=== PATIENT | male | born 1980 | race African-American/Black ===

== ENCOUNTER 2018-02-06 14:27 | Emergency (ER) | payer OTHER ==
[2018-02-06 14:52] VITALS: BP 149/83; PULSE 73; RESP 16; TEMP 98
--- NOTE | 2018-02-06 15:05 | ED ---
General Adult HPI - General Chief complaint: Extremity Injury, Upper Stated complaint: shoulder pain Time Seen by Provider: 02/06/18 14:57 Source: patient, RN notes reviewed Mode of arrival: ambulatory Limitations: no limitations - History of Present Illness Initial comments: This is a 37-year-old male who presents to the emergency department chief complaint of right shoulder pain. Patient states that he woke up Tuesday morning and had achiness in his right shoulder. He states that he woke up Tuesday morning and had difficulty moving his right shoulder due to pain. He states that he had to call into work today because of the pain in his right shoulder. He denies any specific injuries or trauma. He does state that he feels like he may have slept on it wrong Tuesday night. He requests a work note. Denies recent fevers or chills, chest pain or shortness of breath, abdominal pain, nausea or vomiting, dizziness or headache. - Related Data Home Medications Medication Instructions Recorded Confirmed No Known Home Medications [No 02/06/18 02/06/18 Known Home Medications] Allergies Allergy/AdvReac Type Severity Reaction Status Date / Time No Known Allergies Allergy Verified 02/06/18 14:50 Review of Systems ROS Statement: Those systems with pertinent positive or pertinent negative responses have been documented in the HPI. ROS Other: All systems not noted in ROS Statement are negative. Past Medical History Past Medical History: No Reported History History of Any Multi-Drug Resistant Organisms: None Reported Past Surgical History: Hernia Repair Past Psychological History: No Psychological Hx Reported Smoking Status: Current every day smoker Past Alcohol Use History: Occasional Past Drug Use History: None Reported General Exam - General Exam Comments Initial Comments: General: Awake and alert, well-developed; in no apparent distress. HEENT: Head atraumatic, normocephalic. Pupils are equal, round and reactive to light. Extraocular movements intact. Oropharynx moist without erythema or exudate. Neck: Supple. Normal ROM. Cardiovascular: Regular rate and rhythm. No murmurs, rubs or gallops. Chest symmetrical. Respiratory: Lungs clear to auscultation bilaterally. No wheezes, rales or rhonchi. Normal respiratory effort with no use of accessory muscles. Musculoskeletal: Normal range of motion of the right shoulder, however patient complains of pain with flexion and abduction due to pain. There is no tenderness on palpation of clavicle, AC joint or scapula. No erythema, swelling or ecchymosis. Sensation is intact. Radial pulses are 2+ equal and palpable bilaterally. Skin: Damon, warm and dry without rashes or lesions. Neurological: Alert and oriented x3. CN II-XII grossly intact. Speech is fluent and answers are appropriate. No focal neuro deficits. Psychiatric: Normal mood and affect. No overt signs of depression or anxiety noted. Limitations: no limitations Course Vital Signs 02/06/18 14:48 Temperature 98 F Pulse Rate 73 Respiratory 16 Rate Blood Pressure 149/83 O2 Sat by Pulse 99 Oximetry Medical Decision Making - Medical Decision Making This is a 37-year-old male who presents to the emergency department with chief complaint of right shoulder pain. Patient denies any specific injury or trauma. He states that he woke up Tuesday morning with achiness in his right shoulder and has difficulty moving it due to the pain. X-ray was obtained and revealed no acute fractures or dislocations. Patient will be provided with a sling. He will also be given follow-up information for orthopedics if pain persists. Recommended rest, ice and ibuprofen as needed. Patient's vital signs are stable and he is in no acute distress. He will be discharged home at this time. All questions answered. - Radiology Data Radiology results: report reviewed, image reviewed Right shoulder x-ray impression: There is no acute fracture or dislocation the right shoulder. 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 Disposition Clinical Impression: Right shoulder pain Disposition: HOME SELF-CARE Condition: Good Instructions: Shoulder Pain (ED) Additional Instructions: Please follow-up with Dr. Subramanian, orthopedics if pain persists. Please rest, ice and take ibuprofen as needed for pain. Please follow up with primary care provider within 1-2 days. Return to emergency department if symptoms should worsen or any concerns arise. Is patient prescribed a controlled substance at d/c from ED?: No Referrals: None,Stated [Primary Care Provider] - 1-2 days Tank Subramanian MD [STAFF PHYSICIAN] - 1-2 days Time of Disposition: 15:33
--- NOTE | 2018-02-06 15:14 | XR ---
EXAMINATION TYPE: XR shoulder complete RT DATE OF EXAM: 02/06/2018 CLINICAL HISTORY: Right shoulder pain for 2 to 3 days with no known injury TECHNIQUE: Three views of the right shoulder are obtained. COMPARISON: None. FINDINGS: There is no acute fracture/dislocation evident in the right shoulder. The acromioclavicul ar and glenohumeral joint spaces appear intact. There is mild to moderate acromioclavicular arthropat hy with marginal spurring, capsular hypertrophy and joint space narrowing. The visualized ribs are i ntact and unremarkable. IMPRESSION: There is no acute fracture or dislocation in the right shoulder. Mild to moderate acromi oclavicular arthropathy.
== END 2018-02-06 15:52 | disposition home or self-care (01) ==
LOC: EC 14:27
DX: M25.511 Pain in right shoulder (principal); F17.200 Nicotine dependence, unspecified, uncomplicated
CPT/HCPCS: 99283

== ENCOUNTER 2018-10-21 10:17 | Emergency (ER) | payer OTHER ==
[2018-10-21 10:26] VITALS: RESP 18
--- NOTE | 2018-10-21 11:08 | ED ---
General Adult HPI - General Chief complaint: ENT Stated complaint: needs ears flushed Time Seen by Provider: 10/21/18 10:31 Source: patient, RN notes reviewed Mode of arrival: ambulatory Limitations: no limitations - History of Present Illness Initial comments: Patient is a pleasant 38-year-old male presenting to the emergency department with concern regarding cerumen impaction. Patient states he has had this happen several times in the past and usually needs his ears flushed out every couple of years. Patient states he is able to hear however does seem somewhat less. No fevers. No throat or neck problems. No pain. - Related Data Home Medications Medication Instructions Recorded Confirmed No Known Home Medications 02/06/18 10/21/18 Allergies Allergy/AdvReac Type Severity Reaction Status Date / Time No Known Allergies Allergy Verified 10/21/18 10:31 Review of Systems ROS Statement: Those systems with pertinent positive or pertinent negative responses have been documented in the HPI. ROS Other: All systems not noted in ROS Statement are negative. Constitutional: Denies: fever Eyes: Denies: eye pain ENT: Reports: as per HPI. Denies: ear pain, throat pain Respiratory: Denies: dyspnea Cardiovascular: Denies: palpitations Endocrine: Denies: fatigue Gastrointestinal: Denies: abdominal pain, vomiting Musculoskeletal: Denies: back pain Skin: Denies: rash Neurological: Denies: headache, weakness Past Medical History Past Medical History: No Reported History History of Any Multi-Drug Resistant Organisms: None Reported Past Surgical History: Hernia Repair Past Psychological History: No Psychological Hx Reported Smoking Status: Never smoker Past Alcohol Use History: Occasional Past Drug Use History: Marijuana General Exam Limitations: no limitations General appearance: alert, in no apparent distress Head exam: Present: atraumatic Eye exam: Present: normal appearance ENT exam: Present: other (Bilateral cerumen impaction) Neck exam: Present: normal inspection. Absent: tenderness, lymphadenopathy Respiratory exam: Present: normal lung sounds bilaterally Cardiovascular Exam: Present: regular rate, normal rhythm Neurological exam: Present: alert Psychiatric exam: Present: normal affect, normal mood Skin exam: Absent: rash Course Vital Signs 10/21/18 10:22 Temperature 98.0 F Pulse Rate 79 Respiratory 18 Rate Blood Pressure 128/83 O2 Sat by Pulse 96 Oximetry Medical Decision Making - Medical Decision Making Patient symptom-free following irrigation Disposition Clinical Impression: Cerumen impaction Disposition: HOME SELF-CARE Condition: Stable Instructions (If sedation given, give patient instructions): Cerumen Impaction (ED) Additional Instructions: Please follow-up with primary care physician in the next couple days for recheck. [id number] Debrox as needed. Return for pain, hearing loss, worsening symptoms or other concerns Is patient prescribed a controlled substance at d/c from ED?: No Referrals: Gin Irene MD [STAFF PHYSICIAN] - 1-2 days Time of Disposition: 12:08
[2018-10-21 12:16] VITALS: BP 122/68; PULSE 77; TEMP 97.9
== END 2018-10-21 12:16 | disposition home or self-care (01) ==
LOC: EC 10:17
DX: H61.23 Impacted cerumen, bilateral (principal)
CPT/HCPCS: 69209; 99283

== ENCOUNTER 2020-05-08 08:33 | Day surgery (SDC) | payer OTHER ==
[2020-05-06 09:22] VITALS: BMI 39.5
[~2020-05-08 08:33] MED LIST: LACTATED RINGERS 1,000 ML IV SCH
[2020-05-08 09:14] VITALS: RESP 16; TEMP 97.3
[2020-05-08] MEDS ORDERED: MIDAZOLAM 2 MG/2 ML VIAL ONE (09:47)
[2020-05-08] MEDS ORDERED: PROPOFOL 10 MG/ML 20 ML VIAL IV ONE (09:47)
[2020-05-08] MEDS ORDERED: fentaNYL (PF) 50 MCG/ML 2 ML AMP ONE (09:47)
--- NOTE | 2020-05-08 10:32 | P.PCN ---
Date of Procedure: 05/08/20 Description of Procedure: BRIEF HISTORY: Patient is a 39-year-old male presenting to the hospital for evaluation with colonoscopy for symptoms of rectal hemorrhage. The patient had been seen in the GI clinic where he complains of episodes of bright red blood per rectum. Symptoms have been present for 2 years. No family history of colon cancer. Patient was instructed to increase water intake and start fiber supplementation. PROCEDURE PERFORMED: Colonoscopy with biopsy. PREOPERATIVE DIAGNOSIS: Hemorrhage of the anus and rectum, no prior colonoscopy. ESTIMATED BLOOD LOSS: Minimal. IV sedation per Anesthesia. PROCEDURE: After informed consent was obtained, the patient, was brought into the endoscopy unit. IV sedation was administered by Anesthesia under continuous monitoring. Digital rectal examination was normal. Initially the Olympus CF-190 flexible video colonoscope was then inserted in the rectum, gradually advanced into the cecum without any difficulty. Careful examination was performed as the scope was gradually being withdrawn. Ileocecal valve and the appendiceal orifice were visualized and appeared normal, except for a 3 mm polypoid area on the ileocecal valve which was removed/biopsied with cold forcep. The terminal ileum was intubated and appeared normal. Prep was excellent. Mucosa of the cecum, ascending colon, transverse colon, descending colon, sigmoid colon, and rectum appeared normal. Diminutive 1 mm cecal polyp removed with cold forcep polypec roberto. Random biopsies taken of the right and left colon in the setting of rectal bleeding. Low-grade internal hemorrhoids were noted. Retroflexion was performed in the rectum and no lesions were seen. The patient tolerated the procedure well. IMPRESSION: Diminutive cecal polyp removed with cold forcep polypectomy. Low-grade internal hemorrhoids. Otherwise, normal-appearing colon from rectum to cecum with normal-appearing terminal ileum. Random biopsies taken of the right colon, left colon and ileocecal valve. RECOMMENDATIONS: Findings of this examination were discussed with the patient and his . Okay to resume diet. Okay to resume medications. Await pathology from polypectomy and biopsies. Continue fiber supplementation. Follow-up in clinic for results of biopsies and further management.
[2020-05-08 10:46] VITALS: BP 110/70; PULSE 74
== END 2020-05-08 11:41 ==
LOC: ORWHC2ENDO 08:33
PROVIDERS: ATTEND Internal Medicine
DX: D12.0 Benign neoplasm of cecum (principal); K64.8 Other hemorrhoids
CPT/HCPCS: 88305; 45380; J2250; J3010; J2704

== ENCOUNTER 2020-12-08 19:51 | Emergency (ER) | payer OTHER ==
[2020-12-08 21:28] VITALS: BP 135/86; PULSE 86; RESP 16; TEMP 97.9
[2020-12-08] MEDS ORDERED: CARBAMIDE PEROXIDE 6.5% DROPS 15 ML BTL BOTH EARS STA (22:40)
--- NOTE | 2020-12-08 22:41 | ED ---
ENT HPI - General Chief complaint: ENT Stated complaint: ENT - plugged ear Time Seen by Provider: 12/08/20 22:40 Source: patient, RN notes reviewed, old records reviewed Mode of arrival: ambulatory Limitations: no limitations - History of Present Illness Initial comments: This is a 32-year-old male DF for evaluation of bilateral ear plugged a she [id number] male presents to the ER today with serumen issues. Patient denies any loss of hearing. No trauma. No fevers. Patient states he uses ears cleaned about once ER MD complaint: ear pain -: year(s) Location: R ear, L ear Severity: mild Severity scale (1-10): 2 Quality: aching Consistency: constant Improves with: none Worsens with: swallowing, position Context- Dental: other (none) Context- Ear: other (none) Associated Symptoms: other (none) - Related Data Home Medications Medication Instructions Recorded Confirmed No Known Home Medications 02/06/18 05/06/20 Allergies Allergy/AdvReac Type Severity Reaction Status Date / Time No Known Allergies Allergy Verified 12/08/20 21:26 Review of Systems ROS Statement: Those systems with pertinent positive or pertinent negative responses have been documented in the HPI. ROS Other: All systems not noted in ROS Statement are negative. Past Medical History Past Medical History: GI Bleed History of Any Multi-Drug Resistant Organisms: None Reported Past Surgical History: Hernia Repair Past Anesthesia/Blood Transfusion Reactions: No Reported Reaction Past Psychological History: No Psychological Hx Reported Smoking Status: Former smoker Past Alcohol Use History: None Reported Past Drug Use History: Marijuana General Exam Limitations: no limitations General appearance: alert, in no apparent distress Head exam: Present: atraumatic, normocephalic, normal inspection Eye exam: Present: normal appearance, PERRL, EOMI. Absent: scleral icterus, conjunctival injection, periorbital swelling ENT exam: Present: normal exam, mucous membranes moist, TM's normal bilaterally (Bilateral cerumen impaction) Neck exam: Present: normal inspection. Absent: tenderness, meningismus, lymphadenopathy Respiratory exam: Present: normal lung sounds bilaterally. Absent: respiratory distress, wheezes, rales, rhonchi, stridor Cardiovascular Exam: Present: regular rate, normal rhythm, normal heart sounds. Absent: systolic murmur, diastolic murmur, rubs, gallop, clicks GI/Abdominal exam: Present: soft, normal bowel sounds. Absent: distended, tenderness, guarding, rebound, rigid Extremities exam: Present: normal inspection, full ROM, normal capillary refill. Absent: tenderness, pedal edema, joint swelling, calf tenderness Back exam: Present: normal inspection Neurological exam: Present: alert, oriented X3, CN II-XII intact Psychiatric exam: Present: normal affect, normal mood Skin exam: Present: warm, dry, intact, normal color. Absent: rash Course Vital Signs 12/08/20 21:26 Temperature 97.9 F Pulse Rate 86 Respiratory 16 Rate Blood Pressure 135/86 O2 Sat by Pulse 99 Oximetry - Reevaluation(s) Reevaluation #1: 12/09/20 00:09 Medical record is reviewed Reevaluation #2: 12/09/20 00:09 A she encouraged to use tea Brox 4 times daily Reevaluation #3: 12/09/20 00:10 Patient's ears were irrigated here in the ER Medical Decision Making - Medical Decision Making 89 male DF for evaluation. Patient does have bilateral cerumen impaction with his much improved if not resolved. Patient given ear care instructions and can be discharged home Disposition Clinical Impression: Impacted cerumen, Bilateral impacted cerumen Disposition: HOME SELF-CARE Condition: Good Instructions (If sedation given, give patient instructions): Cerumen Impaction (ED) Is patient prescribed a controlled substance at d/c from ED?: No Referrals: None,Stated [REFERRING] - 1-2 days
== END 2020-12-09 00:36 | disposition home or self-care (01) ==
LOC: EC 19:51
DX: H61.23 Impacted cerumen, bilateral (principal); Z87.891 Personal history of nicotine dependence
CPT/HCPCS: 99283

== ENCOUNTER → 2021-04-03 | Outpatient (CLI) | payer OTHER ==
--- NOTE | 2021-04-06 11:13 | MM ---
Reason for exam: clinical finding. Baseline mammogram. History: Family history of breast cancer in mother. Indicated problem(s): lump or thickening in the left breast. Physical Findings: Nurse Summary: 2-3cm nodule in the left breast at 12 o'clock (nurse db). MG 3D Diag Mammo W/Cad KALYANI Bilateral CC and MLO view(s) were taken. Asymmetric breast tissue left breast may reflect gynecomastia. These results were verbally communicated with the patient and result sheet given to the patient on 04/03/21. ASSESSMENT: Incomplete: need additional imaging evaluation, BI-RAD 0 RECOMMENDATION: Ultrasound of the left breast. Manage patient on a clinical basis.
--- NOTE | 2021-04-06 11:14 | USB ---
Reason for exam: additional evaluation requested from abnormal screening. History: Family history of breast cancer in mother. US Breast Limited LT Left limited breast ultrasound including focal area of concern, retroareolar and axilla demonstrates a 3.0 x 2.1 x 1.4cm solid, hypoechoic lesion at the nipple. Probable gynecomastia. These results were verbally communicated with the patient and result sheet given to the patient on 04/03/21. ASSESSMENT: Benign, BI-RAD 2 RECOMMENDATION: Clinical management of the left breast. Manage patient on a clinical basis.
== END | disposition home or self-care (01) ==
LOC: RADMAMWWP 14:25
PROVIDERS: ATTEND Nurse Practitioner Family
DX: R92.8 Other abnormal and inconclusive findings on diagnostic imaging of breast (principal); N63.20 Unspecified lump in the left breast, unspecified quadrant
CPT/HCPCS: 77066; 76642; G0279; 77062

== ENCOUNTER → 2021-06-11 | Outpatient (CLI) | payer OTHER ==
[2021-06-11 13:17] VITALS: BP 117/71; PULSE 77; RESP 12; TEMP 98.3
--- NOTE | 2021-06-11 13:47 | P.GSHP ---
History of Present Illness H&P Date: 06/11/21 Chief Complaint: mass left breast Bienvenido is a 40 year old male with a complaint of a mass behind his left nipple. It is increasing in size. it has been present for over a year. It is painful all the time but worse with pressure. He has nothing on the right side. He had a bilateral mammogram done on this revealed asymmetric left breast tissue probable gynecomastia, this was followed by a left breast ultrasound which revealed a 3 x 2.1 x 1.4 cm solid lesion at the nipple again probable gynecomastia. Caffiene; tea daily nicotine: none at this time, stopped 2018, used to smoke 2/PPD hormones: none medications: none Smokes marijuana on a regular basis; increased over the past year Family History: mother: breast cancer dx. in her 40's she did not have genetic testing done, it has recurred twice, it is back now Surgical history: umbilical hernia surgery right arm trauma Medical history: none Social History: nicotine: Stopped in 2018 used to smoke 2 packs per day Alcohol: None Marijuana: In a regular basis/daily no other drugs - Constitutional Constitutional: Reports sweats - EENT Eyes: denies blurred vision, denies pain Ears: bilateral: tinnitus, deny: decreased hearing Ears, nose, mouth and throat: Denies headache, Denies sore throat - Breasts Breasts: bilateral: as per HPI - Cardiovascular Cardiovascular: Denies chest pain, Denies shortness of breath - Respiratory Respiratory: Denies cough, Denies 7 - Gastrointestinal Gastrointestinal: Denies abdominal pain, Denies diarrhea, Denies nausea, Denies vomiting - Genitourinary (Male) Comment: no testicular masses Genitourinary: Denies dysuria, Denies hematuria - Musculoskeletal Musculoskeletal: Denies myalgias - Integumentary Integumentary: Denies pruritus, Denies rash - Neurological Neurological: Denies numbness, Denies weakness - Psychiatric Psychiatric: Denies anxiety, Denies depression - Endocrine Endocrine: Reports weight change, Denies fatigue - Hematologic/Lymphatic Comment: none - Allergic/Immunologic Allergic/Immunologic: Reports as per HPI Past Medical History Past Medical History: GI Bleed History of Any Multi-Drug Resistant Organisms: None Reported Past Surgical History: Hernia Repair Past Anesthesia/Blood Transfusion Reactions: No Reported Reaction Past Psychological History: No Psychological Hx Reported Smoking Status: Former smoker Past Alcohol Use History: None Reported Additional Past Alcohol Use History / Comment(s): smoker for since age 18, 2 ppd quit 2018 Past Drug Use History: Marijuana Medications and Allergies Home Medications Medication Instructions Recorded Confirmed Type No Known Home Medications 02/06/18 05/06/20 History Allergies Allergy/AdvReac Type Severity Reaction Status Date / Time No Known Allergies Allergy Verified 12/08/20 21:26 Surgical - Exam Vital Signs Temp Pulse Resp BP Pulse Ox 98.3 F 77 12 117/71 96 06/11/21 13:04 06/11/21 13:04 06/11/21 13:04 06/11/21 13:04 06/11/21 13:04 BMI 38.7 - General no distress - Eyes normal ocular movement - ENT no hearing loss, no congestion - Neck trachea midline - Respiratory normal respiratory effort, clear to auscultation - Cardiovascular Heart Sounds: normal: S1, S2 - Musculoskeletal normal gait - Psychiatric oriented to time, oriented to person, oriented to place, speech is normal, memory intact Breast Exam: Left breast larger than right breast Palpation: Right breast no dominant masses or nodules of concern him multiple positional exam Right axilla: No adenopathy of concern Left breast: Firmness to rule out the breast, no discrete dominant masses Left axilla: No adenopathy of concern Testicular exam: Bilateral testicles normal dominant masses or nodules of concern in either testicle Results Mammogram and ultrasound reviewed with Dr. Stephens, findings most likely consistent with gynecomastia Assessment and Plan Assessment: Impression: 1. left breast mass/pain 2. Smokes marijuana on a regular basis 2. Family history mother with breast cancer Plan: 1. Symptomatic left breast mass most likely gynecomastia 2. Ultrasound core biopsy left breast 3. We have discussed the smoking marijuana may be the cause of this patient at this time is not interested in stopping CC; Dr. Katalina Das
== END ==
LOC: WWCWWP 13:01
PROVIDERS: ATTEND Surgery
DX: Z53.9 Procedure and treatment not carried out, unspecified reason (principal)

== ENCOUNTER → 2021-07-01 | Day surgery (SDC) | payer OTHER ==
[2021-07-01 12:37] VITALS: RESP 16
--- NOTE | 2021-07-01 14:01 | USB ---
EXAMINATION TYPE: US biopsy breast VAD LT DATE OF EXAM: 07/01/2021 CLINICAL HISTORY: R92.8, Abnormal mammogram. Abnormal ultrasound TECHNIQUE: Ultrasound guided vaccuum assisted core biopsy of left breast. COMPARISON: 04/03/2021 FINDINGS: The ultrasound guided core biopsy procedure was explained to the patient. The risks, benef its, alternatives were discussed. An informed consent was then obtained. Timeout was performed. The patient was placed in supine positioning for imaging and for the procedure. The overlying skin w as prepped with betadine and sterilely draped in usual sterile fashion. Lidocaine 1% was used as ane sthetic into the skin and deeper breast tissue up to area of concern in the breast. A small skin jarad k was made with surgical scalpel. Under ultrasound guidance, a 12-gauge vacuum assisted biopsy device was used to obtain 4 core samples . A biopsy clip was not left in lesion. The area is directly retroareolar. Good hemostasis was obtained with direct pressure. Discharge instructions were discussed with the zane prater. The patient will follow up with the referring physician for results. Postprocedure mammogram: None The patient tolerated the procedure well without any immediate complication. The patient was dischar ged to home in stable condition. IMPRESSION: 1. Successful ultrasound guided biopsy left breast. Recommendations: 1. Recommendations are pending pathology results.
[2021-07-01 14:11] VITALS: BP 103/68; PULSE 76; TEMP 98.6
== END ==
LOC: RADUSWWP 12:09
PROVIDERS: ATTEND Surgery
DX: N60.12 Diffuse cystic mastopathy of left breast (principal)
CPT/HCPCS: 88305; 19083; J2001

== ENCOUNTER → 2021-07-10 | Outpatient (CLI) | payer OTHER ==
[2021-07-10 13:26] VITALS: BP 130/76; PULSE 96; RESP 18; TEMP 98.2
--- NOTE | 2021-07-10 13:57 | P.PN ---
Subjective Progress Note Date: 07/10/21 Principal diagnosis: Gynecomastia left breast Bienvenido is a 40 year old male with a complaint of a mass behind his left nipple. It is increasing in size. it has been present for over a year. It is painful all the time but worse with pressure. He has nothing on the right side. He had a bilateral mammogram done on this revealed asymmetric left breast tissue probable gynecomastia, this was followed by a left breast ultrasound which revealed a 3 x 2.1 x 1.4 cm solid lesion at the nipple again probable gynecomastia. A core biopsy was performed on [id number]. This revealed fibrosis/scar and fibrocystic changes. This was negative for malignancy. This was discussed with the pathologist Dr. Huggins who said that the findings were consistent with gynecomastia. Objective - Vital Signs Vital signs: Vital Signs Temp 98.2 F 07/10/21 13:23 Pulse 96 07/10/21 13:23 Resp 18 07/10/21 13:23 BP 130/76 07/10/21 13:23 Pulse Ox 98 07/10/21 13:23 Intake & Output 07/09/21 07/10/21 07/10/21 18:59 06:59 18:59 Weight 120.202 kg - Constitutional General appearance: Present: cooperative - EENT Eyes: Present: EOMI ENT: Present: hearing grossly normal - Neck Neck: Present: normal ROM - Respiratory Respiratory: bilateral: CTA - Cardiovascular Heart sounds: normal: S1, S2 - Genitourinary Genitourinary Comment(s): Prior exam on bilateral testicles no dominant masses or nodules of concern - Integumentary Integumentary: Present: normal turgor - Musculoskeletal Musculoskeletal: Present: gait normal - Psychiatric Psychiatric: Present: A&O x's 3, intact judgment & insight - Additional findings Additional findings: Left breast biopsy site clean and dry Approximately 3 cm firm area of nodularity behind the nipple areolar complex, no other dominant masses or nodules of concern Left axilla: No adenopathy of concern Right breast: No dominant masses or nodules of concern Right axilla: No adenopathy of concern Assessment and Plan Assessment: Impression: Asymmetric left breast gynecomastia/symptomatic BMI 39.1 Marijuana use Plan: Resection of symptomatic gynecomastia left breast I have had a discussion with the patient and his significant other regarding the fact that is long as he continues to smoke marijuana he will most likely developed recurrent gynecomastia. They understand this he is going to consider stopping. The patient understands risks include bleeding, infection, reaction to the anesthetic. He understands this may not alleviate his breast pain and that if he continues smoking marijuana that the lesion will recur. Despite all of these things he has symptomatic enlarging gynecomastia at this time and wishes that area to be resected. CC: Dr. Katalina Mckeon
== END | disposition home or self-care (01) ==
LOC: WWCWWP 13:16
PROVIDERS: ATTEND Surgery
DX: Z53.9 Procedure and treatment not carried out, unspecified reason (principal)

== ENCOUNTER → 2021-08-07 | Outpatient (CLI) | payer OTHER ==
[2021-08-07 16:18] VITALS: BP 133/82; PULSE 77; RESP 18; TEMP 98.2
--- NOTE | 2021-08-07 16:26 | P.PN ---
Subjective Progress Note Date: 08/07/21 Principal diagnosis: painful gynecomastia left breast Bienvenido is a 40 year old male with a complaint of a mass behind his left nipple. It is increasing in size. it has been present for over a year. It is painful all the time but worse with pressure. He has nothing on the right side. [place] [address] this revealed asymmetric left breast tissue probable gynecomastia, this was followed by a left breast ultrasound which revealed a 3 x 2.1 x 1.4 cm solid lesion at the nipple again probable gynecomastia. a core biopsy was performed on [id number]. This revealed fibrosis/scar and fibrocystic changes. This was negative for malignancy. This was discussed with the pathologist Dr. Huggins this of the findings were consistent with gynecomastia. Caffiene; tea daily nicotine: none at this time, stopped 2018, used to smoke 2/PPD hormones: none medications: none Smokes marijuana on a regular basis; increased over the past year Family History: mother: breast cancer dx. in her 40's she did not have genetic testing done, it has recurred twice, it is back now Surgical history: umbilical hernia surgery right arm trauma Medical history: none Social History: nicotine: Stopped in 2018 used to smoke 2 packs per day Alcohol: None Marijuana: In a regular basis/daily no other drugs - Constitutional Constitutional: Reports sweats - EENT Eyes: denies blurred vision, denies pain Ears: bilateral: tinnitus, deny: decreased hearing Ears, nose, mouth and throat: Denies headache, Denies sore throat - Breasts Breasts: bilateral: as per HPI - Cardiovascular Cardiovascular: Denies chest pain, Denies shortness of breath - Respiratory Respiratory: Denies cough - Gastrointestinal Gastrointestinal: Denies abdominal pain, Denies diarrhea, Denies nausea, Denies vomiting - Genitourinary (Male) Comment: no testicular masses Genitourinary: Denies dysuria, Denies hematuria - Musculoskeletal Musculoskeletal: Denies myalgias - Integumentary Integumentary: Denies pruritus, Denies rash - Neurological Neurological: Denies numbness, Denies weakness - Psychiatric Psychiatric: Denies anxiety, Denies depression - Endocrine Endocrine: Reports weight change, Denies fatigue - Hematologic/Lymphatic Comment: none - Allergic/Immunologic Allergic/Immunologic: Reports as per HPI Objective - Exam breast examination: Left breast larger than right breast Palpation: Right breast no dominant masses or nodules of concern on multiposition exam Right axilla: No adenopathy of concern Left breast: Firmness greatest posterior to the nipple areolar complex otherwise no other discrete dominant masses or nodules of concern Left axilla: No adenopathy of concern Assessment and Plan Assessment: impression: Left breast mass/pain Smokes marijuana on a regular basis has decreased Family history mother with breast cancer Core biopsy consistent with gynecomastia Plan: Removal of palpable mass left breast consistent with gynecomastia. Patient wishes mass/sensitive area left breast to be resected he understands that as long as he smokes marijuana that the discomfort will continue and that he may have recurrent gynecomastia At this time he understands risks and benefits which include but are not limited to bleeding, infection, reaction to the anesthetic. He understands he may have some greater asymmetry secondary to the resection. Cc: Dr. Katalina Baez
== END | disposition home or self-care (01) ==
LOC: WWCWWP 16:08
PROVIDERS: ATTEND Surgery
DX: Z53.9 Procedure and treatment not carried out, unspecified reason (principal)

== ENCOUNTER 2021-08-18 07:29 | Day surgery (SDC) | payer OTHER ==
[2021-08-17 08:18] VITALS: BMI 39.2
[~2021-08-18 07:29] MED LIST changes: +DEXAMETHASONE SOD PHOSPHATE 4 MG/ML 1 ML VIAL IV ONE; +HEPARIN SODIUM,PORCINE/PF 5,000 UNIT/0.5 ML SYRINGE SQ PRN; +HYDROmorphone 0.5 MG/0.5 ML SYRINGE IVP PRN; +ONDANSETRON 4 MG/2 ML VIAL IVP ONE; +Pre Op ABX Message 1 EACH MISC MISCELLANE ONE
[2021-08-18] MEDS ORDERED: LIDOCAINE 1% INJ 10MG/ML (20 ML MDV) ONE (08:23)
[2021-08-18] MEDS ORDERED: GLYCOPYRROLATE 0.2 MG/ML 2 ML VIAL ONE (08:23)
[2021-08-18] MEDS ORDERED: ROCURONIUM 10 MG/ML (5 ML VIAL) IV ONE (08:23)
[2021-08-18] MEDS ORDERED: .fentaNYL (PF) 50 MCG/ML 2 ML AMP ONE (08:23)
[2021-08-18] MEDS ORDERED: KETAMINE 10 MG/ML 20 ML VIAL ONE (08:23)
[2021-08-18] MEDS ORDERED: NEOSTIGMINE 1 MG/ML 10 ML VIAL ONE (08:23)
[2021-08-18] MEDS ORDERED: MIDAZOLAM 2 MG/2 ML VIAL ONE (08:23)
[2021-08-18] MEDS ORDERED: PROPOFOL 10 MG/ML 20 ML VIAL IV ONE (08:23)
[2021-08-18] MEDS ORDERED: PHENYLEPHRINE-0.9% NACL SYG 1,000 MCG/10 ML SYRINGE ONE (08:23)
[2021-08-18] MEDS ORDERED: SUCCINYLCHOLINE CHLORIDE VIAL 200 MG/10 ML VIAL IV ONE (08:23)
[2021-08-18] MEDS ORDERED: LACTATED RINGERS 1,000 ML IV ONE (10:00)
--- NOTE | 2021-08-18 10:02 | P.OP ---
Date of Procedure: 08/18/21 Preoperative Diagnosis: Symptomatic gynecomastia Postoperative Diagnosis: Same Procedure(s) Performed: Resection of gynecomastia Anesthesia: CRISTOBAL Surgeon: Vidya Campa Estimated Blood Loss (ml): 15 IV fluids (ml): 800 Pathology: other (breast tissue) Condition: stable Disposition: same day Indications for Procedure: Symptomatic, painful, enlarging gynecomastia Operative Findings: Gynecomastia left breast Description of Procedure: The left breast was prepped and draped in a sterile fashion following induction of anesthesia. A circumareolar incision with approximately 1 cm extension laterally was performed. This was carried through the skin and subcutaneous tissue to the plane between the breast tissue and the subcutaneous tissue. The greatest area of gynecomastia was superior and the superior flap was developed. This was carried over the area of gynecomastia and brought down to the pectoralis muscle. It was continued medially and laterally. The tissue was then dissected off the pectoralis muscle using the Harmonic scalpel. An inferior flap was developed. This was also carried down to the pectoralis muscle. The specimen was removed. The wound was examined for hemostasis. The wound was well irrigated, and the Surgicel in powder form was placed. After we were assured that hemostasis was attained the deep tissues were brought together using 3-0 Vicryl suture. The skin was closed using 3-0 Vicryl silk to the subcutaneous tissue and a 4-0 Monocryl skin suture. The specimen was painted for orientation.
--- NOTE | 2021-08-18 10:08 | P.DS ---
Providers Attending physician: Vidya Campa Primary care physician: Radha Baez Plan - Discharge Summary Discharge Rx Participant: Yes New Discharge Prescriptions: No Action No Known Home Medications Discharge Medication List No Known Home Medications 02/06/18 [History] Follow up Appointment(s)/Referral(s): Vidya Campa MD [STAFF PHYSICIAN] - 08/21/21 4:20 pm Activity/Diet/Wound Care/Special Instructions: do not drive if taking narcotic pain medicine or today May shower after 48 hours Discharge Disposition: HOME SELF-CARE
[2021-08-18 10:20] VITALS: TEMP 97.8
[2021-08-18 10:32] VITALS: RESP 18
[2021-08-18] MEDS ORDERED: HYDROcodone/APAP 5-325MG 1 EACH TAB ONE (11:18)
[2021-08-18] MEDS ORDERED: HYDROcodone/APAP 5-325MG 1 EACH TAB PO ONE (11:19)
[2021-08-18 12:08] VITALS: BP 123/76; PULSE 66
== END 2021-08-18 12:10 | disposition home or self-care (01) ==
LOC: OR 07:29
PROVIDERS: ATTEND Surgery
DX: N62 Hypertrophy of breast (principal)
CPT/HCPCS: 19300; 88305; J2250; J0330; J1100; J2710; J2405; J2001; J3010; J2370; J2704; J1644; 88307

== ENCOUNTER → 2021-08-21 | Outpatient (CLI) | payer OTHER ==
[2021-08-21 16:50] VITALS: BP 130/87; PULSE 97; RESP 16; TEMP 98.9
--- NOTE | 2021-08-21 17:10 | P.PN ---
Progress Note - Text Progress Note Date: 08/21/21 Bienvenido postop day 3 resection of gynecomastia left breast. Post procedure he comes in with a seroma on the left breast. There is no evidence of any infection. Incision is clean and dry. Recommendation is for aspiration of seroma. examination: Incision left breast clean and dry Seroma present Impression: Gynecomastia Plan: Aspiration seroma Antibiotics Keflex 501 by mouth 4 times a day Patient a call if any questions or concerns An Memo wrap was placed and patient will follow up next week CC: Dr. Jeny Baez
--- NOTE | 2021-08-21 17:12 | P.PCN ---
Date of Procedure: 08/21/21 Preoperative Diagnosis: Seroma left breast Postoperative Diagnosis: Same Procedure(s) Performed: aspiration of seroma Anesthesia: local Pathology: none sent Condition: stable Disposition: same day Description of Procedure: Area of concern in the left breast was prepped using alcohol after timeout was performed and consent was signed. One percent lidocaine was used to anesthetize the area of concern. The 18-gauge needle on a 20 mL syringe was inserted into the area. Approximately 70 mL of serous dark fluid was obtained. The seroma largely resolved. Patient tolerated the procedure in stable condition. Plan: The Memo wrap at all times Keflex Follow-up with Dr. Fu next week
== END | disposition home or self-care (01) ==
LOC: WWCWWP 16:37
PROVIDERS: ATTEND Surgery
DX: Z53.9 Procedure and treatment not carried out, unspecified reason (principal)

== ENCOUNTER → 2021-08-24 | Outpatient (CLI) | payer OTHER ==
[2021-08-24 12:02] VITALS: BP 125/81; PULSE 76; RESP 18; TEMP 97.8
--- NOTE | 2021-08-24 12:19 | P.PN ---
Progress Note - Text Progress Note Date: 08/24/21 Bienvenido postop day 6 resection of gynecomastia left breast. Post procedure he presented with a seroma in the left breast. Was aspirated last week with approximately 70 mL of fluid being removed. The patient yesterday states he had some drainage from the aspiration site was doing well at this time. He has not had any fever or chills. examination: Incision left breast clean and dry no evidence of infection No seroma present Impression: Gynecomastia resected Plan: Aspiration seroma Finish Keflex 500 by mouth 4 times a day Patient to call if any questions or concerns Patient's dressing was changed and An Memo wrap was placed and patient will follow up in three weeks CC: Dr. Jeny Baez
== END | disposition home or self-care (01) ==
LOC: WWCWWP 11:09
PROVIDERS: ATTEND Surgery
DX: N63.0 Unspecified lump in unspecified breast (principal); Z53.9 Procedure and treatment not carried out, unspecified reason

== ENCOUNTER → 2021-08-24 | Outpatient (CLI) | payer OTHER ==
[2021-08-24 19:43] LABS: HCT 47.4 % (39.6-50.0); HGB 14.8 g/dL (13.0-17.0); MCH 27.8 pg (27.0-32.0); MCHC 31.2 g/dL (32.0-37.0); MCV 89.1 fL (80.0-97.0); Mean Platelet Volume 10.9 fL (9.5-12.2); Platelet Count 307 X 10*3/uL (140-440); RBC 5.32 X 10*6/uL (4.40-5.60); RDW 13.3 % (11.5-14.5); WBC 10.12 X 10*3/uL (4.50-10.00)
[2021-08-24 21:34] LABS: Follicle Stimulating Hormone 5.2 mIU/mL; Luteinizing Hormone 4.6 mIU/mL; Prolactin 71.7 ng/mL (2.100-17.700)
== END | disposition home or self-care (01) ==
LOC: LABWHC1 12:23
PROVIDERS: ATTEND Urology
DX: E29.1 Testicular hypofunction (principal)
CPT/HCPCS: 36415; 82672; 83001; 83002; 84146; 84403; 85027

== ENCOUNTER → 2021-09-10 | Outpatient (CLI) | payer OTHER ==
[2021-09-10 11:37] VITALS: BP 147/86; PULSE 68; RESP 16; TEMP 98.1
--- NOTE | 2021-09-10 11:57 | P.PN ---
Progress Note - Text Progress Note Date: 09/10/21 Bienvenido postop resection of gynecomastia left breast 08-21-21. Post procedure he presented with a seroma in the left breast. It was aspirated post op with approximately 70 mL of fluid being removed. The patient then developed some drainage from the aspiration site which resulted in decrease of any fluid there however this close several days ago when he has a small seroma again at this time. He is not complaining of any fever or chills. He is not complaining of any pain. examination: Incision left breast clean and dry no evidence of infection seroma present Impression: Gynecomastia resected Plan: Aspiration seroma Patient to call if any questions or concerns Patient's dressing was changed and An Memo wrap was placed, but the patient did not use this the whole time. Informed consent obtained for aspiration of seroma The area was prepped using Betadine An 18-gauge needle on a 20 mL syringe was inserted into the area of fluctuance, 40 mL of fluid was obtained the fluid was serous in nature The patient tolerated the procedure in stable condition The patient will follow-up next week CC: Dr. Jney Baez
== END | disposition home or self-care (01) ==
LOC: WWCWWP 10:59
PROVIDERS: ATTEND Surgery
DX: Z53.9 Procedure and treatment not carried out, unspecified reason (principal)

== ENCOUNTER → 2021-09-17 | Outpatient (CLI) | payer OTHER ==
[2021-09-17 12:24] VITALS: BP 143/93; PULSE 89; RESP 17; TEMP 97.9
--- NOTE | 2021-09-17 12:33 | P.PN ---
Progress Note - Text Progress Note Date: 09/17/21 Bienvenido is postop resection of gynecomastia left breast 08-21-21. Post procedure he presented with a seroma in the left breast. It was aspirated post op with approximately 70 mL of fluid being removed. The patient then developed some drainage from the aspiration site which resulted in decrease of any fluid there however this closed this we aspirated approximately week ago. At this time he has no complaints without any recurrence of the seroma. examination: Incision left breast clean and dry no evidence of infection seroma resolved Impression: Gynecomastia resected I discussed with him if he continues to smoke marijuana that the gynecomastia may recur. He understands and will take this into consideration. Plan: Follow-up 1 year CC: Dr. Baez
== END | disposition home or self-care (01) ==
LOC: WWCWWP 12:07
PROVIDERS: ATTEND Surgery
DX: Z53.9 Procedure and treatment not carried out, unspecified reason (principal)

== ENCOUNTER → 2022-02-25 | Outpatient (CLI) | payer OTHER ==
[2022-02-25 18:56] LABS: ALT 51 U/L (10-49); AST 25 U/L (14-35); African American GFR (CKD) 97.5 (60.0-200.0); Albumin 4.5 g/dL (3.8-4.9); Albumin/Globulin Ratio 1.78 (1.60-3.17); Alkaline Phosphatase 118 U/L (41-126); BUN/Creat Ratio 9.73 Ratio (12.00-20.00); Blood Urea Nitrogen 10.7 mg/dL (9.0-27.0); Calcium 9.3 mg/dL (8.7-10.3); Carbon Dioxide 23.7 mmol/L (20.0-27.5); Chloride 104 mmol/L (96-109); Follicle Stimulating Hormone 4.6 mIU/mL; Globulin 2.5 g/dL (1.6-3.3); Glucose 118 mg/dL (70-110); Luteinizing Hormone 3.9 mIU/mL; Non-African American GFR(CKD) 84.1 (60.0-200.0); Potassium 4.3 mmol/L (3.5-5.5); Sodium 141 mmol/L (135-145); Total Bilirubin <0.15 mg/dL (0.30-1.20)
== END | disposition home or self-care (01) ==
LOC: LABWHC1 11:35
PROVIDERS: ATTEND Internal Medicine
DX: E29.1 Testicular hypofunction (principal); E22.1 Hyperprolactinemia
CPT/HCPCS: 36415; 80053; 82024; 82533; 83001; 83002; 84146; 84305; 84402; 84403; 84439; 84443

== ENCOUNTER 2022-03-01 11:22 | Day surgery (SDC) | payer OTHER ==
[2022-02-26 10:55] VITALS: BMI 40.4
[~2022-03-01 11:22] MED LIST changes: -DEXAMETHASONE SOD PHOSPHATE 4 MG/ML 1 ML VIAL IV ONE; -HEPARIN SODIUM,PORCINE/PF 5,000 UNIT/0.5 ML SYRINGE SQ PRN; -HYDROmorphone 0.5 MG/0.5 ML SYRINGE IVP PRN; +LIDOCAINE 1% (10MG/ML) FOR IV START INTRADERMA PRN; -ONDANSETRON 4 MG/2 ML VIAL IVP ONE; -Pre Op ABX Message 1 EACH MISC MISCELLANE ONE
[2022-03-01 12:08] VITALS: TEMP 97.9
[2022-03-01] MEDS ORDERED: PROPOFOL 10 MG/ML 20 ML VIAL IV ONE (12:38)
--- NOTE | 2022-03-01 12:43 | P.GSHP ---
History of Present Illness H&P Date: 03/01/22 Chief Complaint: GI bleed 's is a 41-year-old male been safe for colonoscopy. He's had issues with GI bleed. Past Medical History Past Medical History: Asthma, GI Bleed, Skin Disorder Additional Past Medical History / Comment(s): Asthma as a child, "I grew out of it." Hx blood in stool. Foot fungus. History of Any Multi-Drug Resistant Organisms: None Reported Past Surgical History: Hernia Repair Additional Past Surgical History / Comment(s): Umbilical hernia. Rt arm injury surg. Past Anesthesia/Blood Transfusion Reactions: No Reported Reaction Smoking Status: Former smoker - Past Family History Mother Family Medical History: Cancer Additional Family Medical History / Comment(s): breast cancer Medications and Allergies Home Medications Medication Instructions Recorded Confirmed Type No Known Home Medications 02/06/18 03/01/22 History Allergies Allergy/AdvReac Type Severity Reaction Status Date / Time No Known Allergies Allergy Verified 03/01/22 12:02 Surgical - Exam Vital Signs Temp Pulse Resp BP Pulse Ox 97.9 F 82 18 138/87 98 03/01/22 12:07 03/01/22 12:07 03/01/22 12:07 03/01/22 12:07 03/01/22 12:07 - General well developed, well nourished, no distress - Eyes PERRL - ENT normal pinna - Neck no masses, no bruits - Respiratory normal expansion - Cardiovascular Rhythm: regular - Abdomen Abdomen: soft, non tender Assessment and Plan Assessment: GI bleed. We'll perform colonoscopy.
--- NOTE | 2022-03-01 12:57 | P.OP ---
Date of Procedure: 03/01/22 Preoperative Diagnosis: GI bleed Postoperative Diagnosis: Internal hemorrhoids Procedure(s) Performed: Colonoscopy Anesthesia: MAC Surgeon: Rich Cuellar Pathology: none sent Condition: stable Disposition: PACU Description of Procedure: Patient's placed on the endoscopy table in the lateral position. He received IV sedation. Digital rectal exam was performed. This revealed no mild internal hemorrhoids. The flexible colonoscope was then placed patient anus passed rotator colon. Ileocecal valve was visualized. The cecum, ascending and transverse colon appeared normal. The descending and sigmoid colon was examined. There was a few scattered diverticula. Scope was then brought back the rectum and this appeared normal. Scope withdrawn for patient. There is no evidence of GI bleed. Patient had been bleeding from internal hemorrhoids.
[2022-03-01 13:35] VITALS: BP 112/78; PULSE 76; RESP 16
== END 2022-03-01 13:38 | disposition home or self-care (01) ==
LOC: ORWHC2ENDO 11:22
PROVIDERS: ATTEND Surgery
DX: K64.8 Other hemorrhoids (principal); K92.2 Gastrointestinal hemorrhage, unspecified; Z98.890 Other specified postprocedural states; Z87.891 Personal history of nicotine dependence; Z80.3 Family history of malignant neoplasm of breast
CPT/HCPCS: 45378; J2704

== ENCOUNTER 2022-03-02 06:25 | Day surgery (SDC) | payer OTHER ==
[2022-02-26 11:04] VITALS: BMI 40.4
[~2022-03-02 06:25] MED LIST changes: +ACETAMINOPHEN TAB 500 MG TAB PO PRN; +DEXAMETHASONE SOD PHOSPHATE 4 MG/ML 1 ML VIAL IV ONE; +HEPARIN SODIUM,PORCINE/PF 5,000 UNIT/0.5 ML SYRINGE SQ PRN; -LACTATED RINGERS 1,000 ML IV SCH; +MIDAZOLAM 2 MG/2 ML VIAL IV PRN; +ONDANSETRON 4 MG/2 ML VIAL IVP ONE; +Pre Op ABX Message 1 EACH MISC MISCELLANE ONE
[2022-03-02 06:51] VITALS: TEMP 98
[2022-03-02] MEDS ORDERED: HYDROmorphone 0.5 MG/0.5 ML SYRINGE IVP PRN (07:00)
[2022-03-02] MEDS: LACTATED RINGERS 1,000 ML IV SCH ×2 (07:03→07:50)
[2022-03-02] MEDS ORDERED: KETOROLAC 15 MG/ML 1 ML VIAL ONE (07:50)
[2022-03-02] MEDS ORDERED: LIDOCAINE 2% INJ 20 MG/ML (2 ML VIAL) ONE (07:50)
[2022-03-02] MEDS ORDERED: MIDAZOLAM 2 MG/2 ML VIAL ONE (07:50)
[2022-03-02] MEDS ORDERED: PROPOFOL 10 MG/ML 20 ML VIAL IV ONE (07:50)
[2022-03-02] MEDS ORDERED: fentaNYL (PF) 50 MCG/ML 2 ML AMP ONE (07:50)
--- NOTE | 2022-03-02 07:59 | P.GSHP ---
History of Present Illness H&P Date: 03/02/22 Chief Complaint: Hemorrhoids Is a 41-year-old male who's had complaints of bleeding pain and itching from hemorrhoids. He presents today for hemorrhoidectomy Past Medical History Past Medical History: Asthma, GI Bleed, Skin Disorder Additional Past Medical History / Comment(s): Asthma as a child, "I grew out of it." Hx blood in stool. Foot fungus. History of Any Multi-Drug Resistant Organisms: None Reported Past Surgical History: Hernia Repair Additional Past Surgical History / Comment(s): Umbilical hernia. Rt arm injury surg. Past Anesthesia/Blood Transfusion Reactions: No Reported Reaction Smoking Status: Former smoker - Past Family History Mother Family Medical History: Cancer Additional Family Medical History / Comment(s): breast cancer Medications and Allergies Home Medications Medication Instructions Recorded Confirmed Type No Known Home Medications 02/06/18 03/02/22 History Allergies Allergy/AdvReac Type Severity Reaction Status Date / Time No Known Allergies Allergy Verified 03/02/22 06:44 Surgical - Exam Vital Signs Temp Pulse Resp BP Pulse Ox 98.0 F 71 16 135/77 98 03/02/22 06:50 03/02/22 06:50 03/02/22 06:50 03/02/22 06:50 03/02/22 06:50 - General well developed, well nourished, no distress - Eyes PERRL - ENT normal pinna - Neck no masses - Respiratory normal expansion - Cardiovascular Rhythm: regular - Abdomen Abdomen: soft, non tender - Rectum Internal and external hemorrhoids Assessment and Plan Plan: Hemorrhoids. We'll perform hemorrhoidectomy
[2022-03-02] MEDS ORDERED: BUPIVACAIN-EPI 0.25%-1:200,000 30 ML VIAL SQ ONE (08:00)
[2022-03-02] MEDS ORDERED: GELATIN SPONGE,ABSORB (LARGE) 1 EACH SPONGE TOPICAL ONE (08:01)
--- NOTE | 2022-03-02 08:50 | P.OP ---
Date of Procedure: 03/02/22 Preoperative Diagnosis: Internal and external hemorrhoids Postoperative Diagnosis: Internal and external hemorrhoids Procedure(s) Performed: Hemorrhoidectomy Anesthesia: MAC, local Surgeon: Rich Cuellar Estimated Blood Loss (ml): 5 Pathology: other (Internal and external hemorrhoids) Condition: stable Disposition: PACU Description of Procedure: The patient's placed on the operative table in the prone position. He received IV sedation. His anus was prepped and draped usual sterile fashion. Anal block was performed in 4 quadrants using 1% local Xylocaine. The anus was examined. There is obvious internal and external hemorrhoids. Using the anal retractor the anus was exposed and then the left lateral hemorrhoidal column was grasped with a pair of Allis clamps. The rectus performed using the Harmonic scissors. Next the right anterior and right posterior columns were excised in identical fashion. There is no evidence of any bleeding. The was retrieved cyst. There is no bleeding seen. The wound was then packed with Gelfoam. Patient top she will sent to recovery room in stable condition.
[2022-03-02 09:11] VITALS: BP 120/77; PULSE 71; RESP 17
== END 2022-03-02 09:25 | disposition home or self-care (01) ==
LOC: OR 06:25
PROVIDERS: ATTEND Surgery
DX: K64.4 Residual hemorrhoidal skin tags (principal); K64.8 Other hemorrhoids; K62.89 Other specified diseases of anus and rectum; J45.909 Unspecified asthma, uncomplicated; Z87.891 Personal history of nicotine dependence; Z80.3 Family history of malignant neoplasm of breast
CPT/HCPCS: 88304; 46260; J2250; J1100; J2405; J3010; J1885; J2704; J1644; J2001

== ENCOUNTER → 2022-03-23 | Outpatient (CLI) | payer OTHER ==
--- NOTE | 2022-03-23 13:31 | MR ---
EXAMINATION TYPE: MR pituitary wo/w con DATE OF EXAM: 03/23/2022 COMPARISON: None HISTORY: Hyperprolactinemia TECHNIQUE: Multiplanar, multisequence images of the brain and brainstem is performed without IV contrast, patien t refused IV contrast . FINDINGS: Exam markedly limited to motion artifact and lack of IV contrast. Exam is limited due to the lack of IV contrast. There is be heterogeneous in signal involving the pos terior lateral right margin the sella turcica measuring 9 mm. Pituitary stalk is deviated to the left . Area of signal in question abuts the right internal carotid artery.. Craniocervical junction is maintained. Visualized signal voids are noted within the vertebral basilar and carotid systems. IMPRESSION: 1. There is a heterogeneous signal involving the posterior lateral right sella turcica suspicious for a pituitary microadenoma measuring approximately 9 mm. Given limitation of exam other etiologies not excluded, particularly without contrast. Patient refused IV contrast. Recommend the patient return f or IV contrast T1 sagittal, axial and coronal views.
== END | disposition home or self-care (01) ==
LOC: RADMRIMAIN 12:27
PROVIDERS: ATTEND Internal Medicine
DX: E22.1 Hyperprolactinemia (principal)
CPT/HCPCS: 70551; 70553

== ENCOUNTER → 2022-08-03 | Outpatient (CLI) | payer OTHER ==
[2022-08-03 14:50] LABS: African American GFR (CKD) 79.1 (60.0-200.0); Anion Gap 10.7 mmol/L (10.00-18.00); BUN/Creat Ratio 7.31 Ratio (12.00-20.00); Blood Urea Nitrogen 9.5 mg/dL (9.0-27.0); Calcium 9.1 mg/dL (8.7-10.3); Carbon Dioxide 25.3 mmol/L (20.0-27.5); Non-African American GFR(CKD) 68.3 (60.0-200.0); Prolactin 0.4 ng/mL (2.100-17.700)
== END | disposition home or self-care (01) ==
LOC: LABWHC1 10:27
PROVIDERS: ATTEND Internal Medicine
DX: E22.1 Hyperprolactinemia (principal); E29.1 Testicular hypofunction
CPT/HCPCS: 36415; 80048; 84146; 84402; 84403

== ENCOUNTER → 2022-12-16 | Outpatient (CLI) | payer OTHER ==
[2022-12-16 16:35] LABS: ALT 49 U/L (10-49); AST 28 U/L (14-35); African American GFR (CKD) 87.1 (60.0-200.0); Albumin 4.6 g/dL (3.8-4.9); Albumin/Globulin Ratio 1.53 (1.60-3.17); Alkaline Phosphatase 106 U/L (41-126); BUN/Creat Ratio 8.08 Ratio (12.00-20.00); Blood Urea Nitrogen 9.7 mg/dL (9.0-27.0); Calcium 9.7 mg/dL (8.7-10.3); Carbon Dioxide 26.9 mmol/L (20.0-27.5); Chloride 105 mmol/L (96-109); Glucose 123 mg/dL (70-110); Non-African American GFR(CKD) 75.2 (60.0-200.0); Potassium 4.4 mmol/L (3.5-5.5); Sodium 141 mmol/L (135-145); Total Bilirubin <0.15 mg/dL (0.30-1.20); Total Protein 7.6 g/dL (6.2-8.2)
== END | disposition home or self-care (01) ==
LOC: LABWHC1 09:28
PROVIDERS: ATTEND Internal Medicine
DX: E22.1 Hyperprolactinemia (principal)
CPT/HCPCS: 36415; 80053; 84146; 84402; 84403

== ENCOUNTER → 2023-12-20 | Outpatient (CLI) | payer OTHER ==
[2023-12-20 16:20] LABS: ALT 49 U/L (10-49); AST 22 U/L (14-35); Albumin 4.4 g/dL (3.8-4.9); Albumin/Globulin Ratio 1.63 Ratio (1.60-3.17); Alkaline Phosphatase 125 U/L (41-126); BUN/Creat Ratio 10.33 Ratio (12.00-20.00); Blood Urea Nitrogen 12.4 mg/dL (9.0-27.0); Calcium 9.3 mg/dL (8.7-10.3); Carbon Dioxide 27.7 mmol/L (21.6-31.8); Chloride 104 mmol/L (96-109); Globulin 2.7 g/dL (1.6-3.3); Glucose 111 mg/dL (70-110); Potassium 4.2 mmol/L (3.5-5.5); Sodium 141 mmol/L (135-145); Total Bilirubin <0.2 mg/dL (0.3-1.2); Total Protein 7.1 g/dL (6.2-8.2)
[2023-12-20 16:44] LABS: Prolactin <1.500 ng/mL (2.100-17.000)
== END | disposition home or self-care (01) ==
LOC: LABWHC1 08:35
PROVIDERS: ATTEND Internal Medicine
DX: E22.1 Hyperprolactinemia (principal)
CPT/HCPCS: 36415; 80053; 84146; 84402; 84403

== ENCOUNTER → 2024-12-19 | Outpatient (CLI) | payer OTHER ==
[2024-12-19 11:02] LABS: ALT 47 U/L (10-49); AST 29 U/L (14-35); Albumin 4.5 g/dL (3.8-4.9); Albumin/Globulin Ratio 1.73 Ratio (1.60-3.17); Alkaline Phosphatase 111 U/L (41-126); BUN/Creat Ratio 8.92 Ratio (12.00-20.00); Blood Urea Nitrogen 10.7 mg/dL (9.0-27.0); Calcium 8.9 mg/dL (8.7-10.3); Carbon Dioxide 25.5 mmol/L (21.6-31.8); Chloride 106 mmol/L (96-109); Globulin 2.6 g/dL (1.6-3.3); Glucose 117 mg/dL (70-110); Potassium 3.9 mmol/L (3.5-5.5); Sodium 142 mmol/L (135-145); Total Bilirubin <0.2 mg/dL (0.3-1.2); Total Protein 7.1 g/dL (6.2-8.2)
[2024-12-19 15:39] LABS: Prolactin <1.500 ng/mL (2.100-17.000)
== END | disposition home or self-care (01) ==
LOC: LABWHC1 08:13
PROVIDERS: ATTEND Internal Medicine
DX: E22.1 Hyperprolactinemia (principal); E29.1 Testicular hypofunction
CPT/HCPCS: 36415; 80053; 82040; 84146; 84270; 84403